=== PATIENT | male | born 1935 | race Caucasian/White ===

== ENCOUNTER 2017-12-09 06:21 | Day surgery (SDC) | payer MEDICARE, OTHER ==
[~2017-12-09 06:21] MED LIST: KETOROLAC TROMETHAMINE 0.45% 4 DROP/0.4 ML DROPERETTE OS PRN
[2017-12-09] MEDS ORDERED: FENTANYL CITRATE INJ/PF 100 MCG/2 ML AMPUL ONE (06:36)
[2017-12-09] MEDS ORDERED: MIDAZOLAM 2 MG/2 ML INJ ONE (06:36)
[2017-12-09] MEDS: BESIFLOXACIN HCL 0.6% OPH SUSP 5 ML BOTTLE OS PRN ×3 (06:55→08:00)
[2017-12-09] MEDS: CYCLOPENTOLATE 0.2%/PHENYLEPHRINE 1% OPH SOLN 2 ML OS PRN ×3 (06:55→07:15)
[2017-12-09] MEDS: TROPICAMIDE 1% OPH SOLN 3 ML OS PRN ×3 (06:55→07:15)
[2017-12-09] MEDS: TETRACAINE HCL 0.5% OPH SOLN 2 ML OS PRN ×3 (06:56→07:31)
[2017-12-09] MEDS ORDERED: LIDOCAINE 1% INJ-PF (10 MG/ML) 30 ML SDV ONE (07:08)
[2017-12-09] MEDS ORDERED: EPINEPHRINE INJ/PF 1 MG/1 ML AMPULE ONE (07:08)
[2017-12-09] MEDS ORDERED: CHONDR SU A NA/HYALUR INTRAOC KIT (SURGICARE) ONE (07:08)
--- NOTE | 2017-12-09 19:14 | [facility] DISCHARGE SUMMARY E ---
[facility] Discharge Summary NAME: VERONIQUE ABBOTT AGE: 82Y ADMITTED: 12/09/2017 DISCHARGED: 12/09/2017 FINAL DIAGNOSIS: Cataract, left eye. HOSPITAL COURSE: This is an 82-year-old female who underwent cataract extraction of left eye. She underwent surgery because she was having difficulty seeing road signs. DISCHARGE INSTRUCTIONS: She should be on a regular diet. No bending at her waist, no heavy lifting. She should use Besivance, Ilevro and Durezol at 3:00 p.m. and 8:00 p.m. Sleep with a rigid shield. I will see her for a 1-day postoperative tomorrow. DICTATING PHYSICIAN: GARCIA DURON M.D. [id number] PHY#: [id number] ID: [id number] JOB#: [id number] ACCT: [id number] cc:GARCIA DURON M.D. >
--- NOTE | 2017-12-09 19:15 | [facility] OPERATIVE REPORT E ---
[facility] Operative Report NAME: VERONIQUE ABBOTT AGE: 82Y DATE OF SURGERY: 12/09/2017 ROOM: PREOPERATIVE DIAGNOSIS: CATARACT, LEFT EYE. POSTOPERATIVE DIAGNOSIS: CATARACT, LEFT EYE. OPERATION: Cataract extraction with intraocular lens implant of the left eye. SURGEON: GARCIA DURON M.D. ANESTHESIA: Topical. TISSUE REMOVED OR ALTERED: PROCEDURE: After obtaining appropriate consent, the patient's left eye was prepped and draped in sterile fashion as well as the surgeon in a sterile manner and cataract surgery was started. First a paracentesis blade was used to make a small side-port incision. Viscoelastic was used to inflate the anterior chamber. Next a 2.4 mm incision was made with the paracentesis blade. A continuous capsulorrhexis incision was made using a cystotome and Utrata forceps. Following this hydrodissection was carried out to make the lens fully loose and mobile and it was rotated 90 degrees. Following this, a eqxfbw-xkx-xgiijbh technique was used to phacoemulsify the lens with a CDE of 6.76. The remaining cortex was removed with irrigation/aspiration. Provisc was instilled into the capsular bag to inflate the bag. A SN60WF, 21.0 diopter lens was placed. The remaining viscoelastic material was removed with irrigation/aspiration. Following this, a 10-0 nylon suture was used to close the incision and it was found to be watertight. Vigamox was instilled in the eye and a protective shield was placed over the eye. The patient returned to the postoperative recovery in stable condition. DICTATING PHYSICIAN: AGRCIA DURON M.D. [id number] Y#: [id number] ID: [id number] JOB#: [id number] ACCT: [id number] cc:GARCIA DURON M.D. >
== END 2017-12-09 08:39 | disposition home or self-care (01) ==
LOC: SC 06:21
PROVIDERS: ATTEND Internal Medicine
PROC: 08RK3JZ Replacement of Left Lens with Synthetic Substitute, Percutaneous Approach (ICD-10-PCS; principal; 2017-12-09 07:30)
DX: H25.13 Age-related nuclear cataract, bilateral (principal); H40.053 Ocular hypertension, bilateral; H35.3131 Nonexudative age-related macular degeneration, bilateral, early dry stage; G50.8 Other disorders of trigeminal nerve; H18 Other disorders of cornea; H04.123 Dry eye syndrome of bilateral lacrimal glands; M19.90 Unspecified osteoarthritis, unspecified site; E11.9 Type 2 diabetes mellitus without complications; I10 Essential (primary) hypertension; K21.9 Gastro-esophageal reflux disease without esophagitis; E78.00 Pure hypercholesterolemia, unspecified; Z79.4 Long term (current) use of insulin; Z86.73 Personal history of transient ischemic attack (TIA), and cerebral infarction without residual deficits; Z87.891 Personal history of nicotine dependence; Z79.899 Other long term (current) drug therapy; Z79.84 Long term (current) use of oral hypoglycemic drugs
CPT/HCPCS: 66984; 82962; V2632; J2250; J3490 ×2; A9270; J0171; J3010; 142

== ENCOUNTER 2017-12-30 06:42 | Day surgery (SDC) | payer MEDICARE, OTHER ==
[~2017-12-30 06:42] MED LIST changes: +KETOROLAC TROMETHAMINE 0.45% 4 DROP/0.4 ML DROPERETTE OD PRN; -KETOROLAC TROMETHAMINE 0.45% 4 DROP/0.4 ML DROPERETTE OS PRN
[2017-12-30] MEDS: CYCLOPENTOLATE 0.2%/PHENYLEPHRINE 1% OPH SOLN 2 ML OD PRN ×3 (06:48→07:14)
[2017-12-30] MEDS: TROPICAMIDE 1% OPH SOLN 3 ML OD PRN ×3 (06:49→07:15)
[2017-12-30] MEDS: BESIFLOXACIN HCL 0.6% OPH SUSP 5 ML BOTTLE OD PRN ×4 (06:50→08:12)
[2017-12-30] MEDS: TETRACAINE HCL 0.5% OPH SOLN 2 ML OD PRN ×4 (06:52→07:50)
[2017-12-30] MEDS ORDERED: MIDAZOLAM 2 MG/2 ML INJ ONE (07:11)
[2017-12-30] MEDS: EPINEPHRINE INJ/PF 1 MG/1 ML AMPULE ONE ×2 (08:00)
[2017-12-30] MEDS: LIDOCAINE 1% INJ-PF (10 MG/ML) 30 ML SDV ONE ×2 (08:02)
[2017-12-30] MEDS: CHONDR SU A NA/HYALUR INTRAOC KIT (SURGICARE) ONE ×2 (08:04)
--- NOTE | 2017-12-30 15:14 | [facility] OPERATIVE REPORT E ---
[facility] Operative Report NAME: VERONIQUE ABBOTT AGE: 82Y DATE OF SURGERY: 12/30/2017 ROOM: PREOPERATIVE DIAGNOSIS: CATARACT, RIGHT EYE. POSTOPERATIVE DIAGNOSIS: CATARACT, RIGHT EYE. OPERATION: Cataract extraction with intraocular lens implant of the right eye. SURGEON: GARCIA DURON M.D. ANESTHESIA: Topical. PROCEDURE: After obtaining appropriate consent, the patient's right eye was prepped and draped in sterile fashion as well as the surgeon in a sterile manner and cataract surgery was started. First a paracentesis blade was used to make a small side-port incision. Viscoelastic was used to inflate the anterior chamber. Next a 2.4 mm incision was made with the paracentesis blade. A continuous capsulorrhexis incision was made using a cystotome and Utrata forceps. Following this hydrodissection was carried out to make the lens fully loose and mobile and it was rotated 90 degrees. Following this, a pjluki-csh-dgzkzfc technique was used to phacoemulsify the lens with a CDE of 7.56. The remaining cortex was removed with irrigation/aspiration. Provisc was instilled into the capsular bag to inflate the bag. A SN60WF, 20.5 diopter lens was placed. The remaining viscoelastic material was removed with irrigation/aspiration. Following this, a 10-0 nylon suture was used to close the incision and it was found to be watertight. Vigamox was instilled in the eye and a protective shield was placed over the eye. The patient returned to the postoperative recovery in stable condition. DICTATING PHYSICIAN: GARCIA DURON M.D. [id number] [id number] PHY#: [id number] ID: [id number] JOB#: [id number] ACCT: [id number] cc:GARCIA DURON M.D. >
--- NOTE | 2017-12-30 15:18 | [facility] DISCHARGE SUMMARY E ---
[facility] Discharge Summary NAME: VERONIQUE ABBOTT AGE: 82Y ADMITTED: 12/30/2017 DISCHARGED: 12/30/2017 DIAGNOSIS: CATARACT, RIGHT EYE. SUMMARY: This is an 82-year-old who underwent cataract extraction of the right eye. He underwent surgery because he was having difficulty driving at night secondary to glare from headlights. DISCHARGE INSTRUCTIONS: Patient is to be on a regular diet, no bending at his waist, and no heavy lifting. He should use his Besivance, Ilevro and Durezol at 3 p.m. and 8 p.m. and sleep with a rigid shield. I will see him for his 1-day postoperative tomorrow. DICTATING PHYSICIAN: GARCIA DURON M.D. [id number] PHY#: [id number] ID: [id number] JOB#: [id number] ACCT: [id number] cc:GARCIA DURON M.D. >
== END 2017-12-30 08:56 | disposition home or self-care (01) ==
LOC: SC 06:42
PROVIDERS: ATTEND Internal Medicine
DX: H25.11 Age-related nuclear cataract, right eye (principal); Z96.1 Presence of intraocular lens; I10 Essential (primary) hypertension; I69.954 Hemiplegia and hemiparesis following unspecified cerebrovascular disease affecting left non-dominant side
CPT/HCPCS: 66984; 82962; V2632; J2250; J3490 ×2; A9270; J0171; 142